=== PATIENT | female | born 1985 ===

== ENCOUNTER 2017-01-23 06:27 | Day surgery (SDC) | payer SELFPAY ==
[2017-01-22 09:01] VITALS: BMI 25.3
[2017-01-22 11:20] VITALS: RESP 18
[2017-01-23] MEDS ORDERED: Lactated Ringer's 1,000 ML IV ONE ×2 (08:10→10:20)
[2017-01-23] MEDS ORDERED: Bupivacaine 0.5% Inj(30mL) ONE (09:18)
[2017-01-23] MEDS ORDERED: Lidocaine 1% Inj (20ml) ONE (09:18)
[2017-01-23] MEDS ORDERED: Propofol 10 mg/ml Inj (20 ML) ONE (09:26)
[2017-01-23] MEDS ORDERED: Midazolam 2 MG/2 ML VIAL ONE (09:26)
[2017-01-23] MEDS ORDERED: ePHEDrine 50 mg/ml Inj ONE (09:27)
[2017-01-23] MEDS ORDERED: Succinylcholine 200 mg/10 ml Inj IV ONE (09:27)
[2017-01-23] MEDS ORDERED: Rocuronium 10 mg/ml (5 ml) ONE (09:27)
[2017-01-23] MEDS ORDERED: Lidocaine 2% MPF (5 ml) Inj ONE (09:30)
[2017-01-23] MEDS ORDERED: Phenylephrine 10 mg/ml Inj ONE (09:34)
[2017-01-23] MEDS ORDERED: Neostigmine Methylsulfate 3mg/3ml Syringe IV ONE (10:27)
[2017-01-23] MEDS ORDERED: Neostigmine Methylsulfate 2 MG/2 ML ML IV ONE (10:27)
[2017-01-23] MEDS ORDERED: Oxycodone/Acetaminophen 5/325 mg Tab PO PRN (10:59)
[2017-01-23] MEDS ORDERED: Lactated Ringer's 1,000 ML IV SCH (11:02)
--- NOTE | 2017-01-23 11:09 | PCM.SURG1 ---
Surgeon's Initial Post Op Note - Surgeon's Notes Surgeon: Dr. Niyah Gamboa Solicitor Patent: Teagan Anderson, PGY1 Pre-Operative Diagnosis: Acute on chronic cholecystitis Operative Findings: See full report Post-Operative Diagnosis: same Operation Performed: Laparoscopic cholecystectomy Specimen/Specimens Removed: gallbladder Estimated Blood Loss: EBL {In ML}: 15 Date of Surgery/Procedure: 01/23/17 Time of Surgery/Procedure: 08:00
[2017-01-23] MEDS: HYDROmorphone 0.5 mg/0.5 ml ISec IVP PRN ×2 (11:42→11:45)
[2017-01-23 13:37] VITALS: O2SAT 98
[2017-01-23 14:25] VITALS: TEMP 98
[2017-01-23 16:07] VITALS: BP 118/67; PULSE 64
--- NOTE | 2017-01-31 14:44 | CP.SDSHP ---
Same Day Surgery H & P - Allergies Allergies: Allergies No Known Allergies Allergy (Verified 01/22/17 09:00) Short Stay Discharge - Short Stay Discharge Admitting Diagnosis/Reason for Visit: K80.2 Disposition: HOME/ ROUTINE Referrals: Moira Shore MD [Primary Care Provider] - Follow-up: surgical clinic 1-2 weeks Progress Note/Discharge Note with Instructions: Tolerating po, abdomen benign. Stable postop
--- NOTE | 2017-03-06 09:35 | OP ---
PROCEDURE DATE: 01/23/2017 SURGEON: Niyah Gamboa MD [employer] OPERATOR: Dr Anderson ANESTHESIA: General, Dr. Antony. PREOPERATIVE DIAGNOSIS: Chronic cholecystitis. POSTOPERATIVE DIAGNOSIS: Chronic cholecystitis. PROCEDURE: Laparoscopic cholecystectomy. DESCRIPTION OF PROCEDURE: With the patient in the supine position, under adequate general anesthesia, the abdomen was prepped and draped in the usual sterile manner. Veress needle puncture was performed at the umbilicus with insufflation to 15 cm water pressure of CO2 and a 10 mm laparoscopic trochar was inserted via an infraumbilical incision. Under direct vision, additional trocars were inserted at the epigastrium and right costal margin. The gallbladder was identified. It appeared moderately thickened consistent with chronic cholecystitis and the fundus was grasped and elevated. The adhesions to the peritoneal surface of the gallbladder were taken down to expose the infundibulum. The infundibulum was grasped and retracted laterally. The cystic duct was identified and dissected. The cystic duct was cleared down towards the common bile duct. The cystic duct was then triply clipped and divided. The cystic artery was then identified and anterior and posterior branches were triply clipped and divided. The gallbladder was dissected free of liver bed using electrocautery. The liver bed was inspected for hemostasis and the dissection was completed. The gallbladder was placed in a specimen retrieval bag and removed via the umbilical port site, it was noted to contain multiple stones. The right upper quadrant was irrigated and suctioned. The pneumoperitoneum was released and the trocars were removed. The umbilical port site was closed with a figure of eight fascial suture of 0 Vicryl. All incisions were closed with 4-0 Monocryl subcuticular sutures and Steri-Strips. Dry sterile dressings were applied. The patient tolerated the procedure well and transferred to the recovery room in stable condition. Estimated blood loss for the procedure was 10 mL. Niyah Gambao MD MTDPayam
== END 2017-01-23 15:40 | disposition home or self-care (01) ==
LOC: H.OPSURG 06:27
PROVIDERS: ATTEND Specialist
DX: K80.20 Calculus of gallbladder without cholecystitis without obstruction (principal); J45.909 Unspecified asthma, uncomplicated

== ENCOUNTER 2017-10-01 10:11 | Emergency (ER) | payer SELFPAY ==
[2017-10-01 10:20] VITALS: BMI 23.4
[2017-10-01 10:22] VITALS: BP 125/83; PULSE 75; RESP 16; TEMP 97.9; O2SAT 99
[2017-10-01] MEDS ORDERED: Alum-Mag Hydrox-Simethicone Susp (30 mL) ONE (11:20)
[2017-10-01] MEDS: Sodium Chloride 0.9% 1,000 ML IV STA (11:24)
[2017-10-01] MEDS: Alum-Mag Hydrox-Simethicone Susp (30 mL) PO STA (11:25)
[2017-10-01 11:35] LABS: BASO % 0.5 % (0.0-2.0); EOS # 0.1 K/uL (0.0-0.7); EOS % 1.4 % (0.0-4.0); LYMPH # 1.7 K/uL (1.0-4.3); LYMPH % 25.6 % (20.0-40.0); MEAN CELL VOLUME 86.1 fl (81.0-99.0); MEAN CORPUSCULAR HGB CONC 33.7 g/dL (33.0-37.0); MEAN PLATELET VOLUME 9.6 fl (7.2-11.7); MONO # 0.4 K/uL (0.0-0.8); MONO % 6.4 % (0.0-10.0); NEUT # 4.4 K/uL (1.8-7.0); NEUT % 66.1 % (50.0-75.0); RBC 4.48 Mil/uL (3.80-5.20); WHITE BLOOD COUNT 6.6 K/uL (4.8-10.8)
[2017-10-01 11:43] LABS: ALB/GLOB RATIO 1.3 (1.0-2.1); ALBUMIN 4.2 g/dL (3.5-5.0); ALT/SGPT 82 U/L (9-52); AST/SGOT 68 U/L (14-36); BLOOD UREA NITROGEN 16 mg/dl (7-17); CALCIUM 9.4 mg/dL (8.4-10.2); GFR AFRICAN-AMERICAN > 60; GFR NON-AFRICAN AMERICAN > 60; LIPASE 107 U/L (23-300)
--- NOTE | 2017-10-01 12:29 | US ---
HISTORY: epigastric pain COMPARISON: Nuclear hepatobiliary scan 12/21/2016. No prior CT or ultrasound available for comparison. TECHNIQUE: Sonographic evaluation of the right upper quadrant of the abdomen. FINDINGS: LIVER: Measures 14.6 cm in length. Mildly increased echogenicity of the liver parenchyma is noted diffusely on the basis of limited diffuse fatty infiltration though other infiltrative processes possible. No mass. No intrahepatic bile duct dilatation. GALLBLADDER: Surgically absent. COMMON BILE DUCT: Measures 7.4 mm. No stones. No dilatation. PANCREAS: The tail of the pancreas is obscured by overlying bowel gas with remainder unremarkable. RIGHT KIDNEY: Measures 11.1 cm in length. Normal echogenicity. No calculus, mass, or hydronephrosis. AORTA: No aneurysmal dilatation. IVC: Unremarkable. OTHER FINDINGS: None . IMPRESSION: Surgically absent gallbladder. Likely related dilatation of the common bile duct up to 7.4 mm without choledocholithiasis identified within the demonstrated segment. No definite intrahepatic biliary dilatation. Hepatic steatosis appears mild but diffuse. Partial imaging of the pancreas.
--- NOTE | 2017-10-01 12:47 | ED PDOC ---
HPI: Abdomen Time Seen by Provider: 10/01/17 10:17 Chief Complaint (Nursing): Abdominal Pain Chief Complaint (Provider): Epigastric abdominal pain x 5 days History Per: Patient History/Exam Limitations: no limitations Onset/Duration Of Symptoms: Days Outside of [place] travel?: No Current Symptoms Are (Timing): Still Present Location Of Pain/Discomfort: Epigastric Quality Of Discomfort: Dull Associated Symptoms: denies: Fever, Chills, Nausea Exacerbating Factors: None Additional Complaint(s): 32 yo female with no medical problems presents with epigastic abdominal pain x 5 days. Nothing seems to make it better or worse. No N/V/D. No medication at home for pain. Past Medical History Reviewed: Historical Data, Nursing Documentation, Vital Signs Vital Signs: Last Vital Signs Temp 97.9 F 10/01/17 10:20 Pulse 75 10/01/17 10:20 Resp 16 10/01/17 10:20 BP 125/83 10/01/17 10:20 Pulse Ox 99 10/01/17 10:20 - Medical History PMH: No Chronic Diseases - Surgical History Surgical History: No Surg Hx - Family History Family History: States: No Known Family Hx - Living Arrangements Living Arrangements: With Family - Social History Current smoker - smoking cessation education provided: No - Home Medications Home Medications: Ambulatory Orders Medication Instructions Recorded oxyCODONE/Acetaminophen [Percocet 5 - 325 mg PO Q4 PRN 01/23/17 5/325 mg Tab] Famotidine [Pepcid] 20 mg PO BID #28 tab 10/01/17 - Allergies Allergies/Adverse Reactions: Allergies Allergy/AdvReac Type Severity Reaction Status Date / Time No Known Allergies Allergy Verified 01/22/17 09:00 Review of Systems ROS Statement: Except As Marked, All Systems Reviewed And Found Negative Constitutional: Negative for: Fever, Chills Gastrointestinal: Positive for: Abdominal Pain. Negative for: Nausea, Vomiting , Diarrhea Skin: Negative for: Rash Physical Exam - Reviewed Nursing Documentation Reviewed: Yes Vital Signs Reviewed: Yes - Physical Exam Appears: Positive for: Well, Non-toxic, No Acute Distress Head Exam: Positive for: ATRAUMATIC, NORMAL INSPECTION, NORMOCEPHALIC Skin: Positive for: Normal Color, Warm, DRY Eye Exam: Positive for: Normal appearance ENT: Positive for: Normal ENT Inspection Neck: Positive for: Normal, Painless ROM Cardiovascular/Chest: Positive for: Regular Rate, Rhythm Respiratory: Positive for: Normal Breath Sounds. Negative for: Accessory Muscle Use Gastrointestinal/Abdominal: Positive for: Normal Exam, Bowel Sounds, Soft. Negative for: Tenderness Back: Positive for: Normal Inspection Extremity: Positive for: Normal ROM Neurologic/Psych: Positive for: Alert, Oriented - Laboratory Results Result Diagrams: 10/01/17 11:20 10/01/17 11:20 - ECG O2 Sat by Pulse Oximetry: 99 Medical Decision Making Medical Decision Making: US - Fatty liver Pt reports feeling better on re-evaluation. Disposition - Clinical Impression Clinical Impression: Fatty liver - Patient ED Disposition Is Patient to be Admitted: No - Disposition Referrals: Vicki Austin MD [Primary Care Provider] - Disposition: Routine/Home Disposition Time: 12:48 Condition: STABLE Prescriptions: Famotidine [Pepcid] 20 mg PO BID #28 tab Instructions: Nonalcoholic Fatty Liver Disease (DC), Gastritis (DC) Print Language: GEORGI[place]
== END 2017-10-01 13:10 | disposition home or self-care (01) ==
LOC: H.ER 10:11 → SUPCPDRO 10:11 → H.ER 13:10
DX: K76.0 Fatty (change of) liver, not elsewhere classified (principal)
CPT/HCPCS: 76705; 80053; 81025; 83690; 85025; 99284; J7040